=== PATIENT | female | born 1985 | race Caucasian/White ===

== ENCOUNTER 2016-10-28 12:14 | Emergency (ER) | payer MEDICAID ==
--- NOTE | 2016-10-28 12:25 | ER Document Report ---
ED Medical Screen (RME) - General Stated Complaint: CRAMPING Notes: Abnormal vaginal bleeding initiated last night painful cramps and full commences 2 weeks ago. I greeted and performed a rapid initial assessment of this patient. Comprehensive ED assessment and evaluation of the patient, analysis of test results and completion of the medical decision making process will be conducted by additional ED providers. TRAVEL OUTSIDE OF THE [place] IN LAST 30 DAYS: No - Related Data Allergies/Adverse Reactions: No Known Allergies Allergy (Verified 03/30/13 13:40) Past Medical History Pulmonary Medical History: Denies: Hx Tuberculosis Neurological Medical History: Reports: Hx Migraine, Hx Seizures - focal point ( left side). Denies: Hx Cerebrovascular Accident Renal/ Medical History: Denies: Hx End Stage Renal Disease, Hx Kidney Stones, Hx Peritoneal Dialysis Musculoskeltal Medical History: Denies Hx Multiple Sclerosis Psychiatric Medical History: Denies: Hx Dementia Past Surgical History: Reports: Hx Section, Hx Orthopedic Surgery - "tumors both hands", Hx Tubal Ligation. Denies: Hx Appendectomy, Hx Bowel Surgery, Hx Cholecystectomy, Hx Coronary Artery Bypass Graft, Hx Gastric Bypass Surgery, Hx Herniorrhaphy, Hx Hysterectomy, Hx Mastectomy, Hx Pacemaker, Hx Tonsillectomy - Immunizations Immunizations up to date: Yes Hx Diphtheria, Pertussis, Tetanus Vaccination: No Physical Exam - Vital signs Vitals: Temp Pulse Resp BP Pulse Ox 97.4 F 94 20 114/73 98 10/28/16 12:22 10/28/16 12:22 10/28/16 12:22 10/28/16 12:22 10/28/16 12:22 Course - Vital Signs Vital signs: Temp Pulse Resp BP Pulse Ox 97.4 F 94 20 114/73 98 10/28/16 12:22 10/28/16 12:22 10/28/16 12:22 10/28/16 12:22 10/28/16 12:22
[2016-10-28 12:50] LABS: ABSOLUTE EOSINOPHILS # (AUTO) 0.1 10^3/uL (0.0-0.6); ABSOLUTE LYMPHOCYTES (AUTO) 2.4 10^3/uL (0.5-4.7); ABSOLUTE MONOCYTES (AUTO) 0.8 10^3/uL (0.1-1.4); ABSOLUTE NEUT (AUTO) 7.6 10^3/uL (1.7-8.2); BASOPHILS % (AUTO) 0.2 % (0-2); EOSINOPHILS % (AUTO) 0.5 % (0-6); HEMOGLOBIN 14.3 g/dL (12.0-15.5); HGB HCT DIFFERENCE -1.1; LYMPHOCYTES % (AUTO) 21.8 % (13-45); MEAN CORPUSCULAR HEMOGLOBIN 31.1 pg (27.0-33.4); MEAN CORPUSCULAR HGB CONC 32.5 g/dL (32.0-36.0); MEAN CORPUSCULAR VOLUME 96 fl (80-97); MONOCYTES % (AUTO) 7.6 % (3-13); RED CELL DISTRIBUTION WIDTH 12.7 % (11.5-14.0); SEGMENTED NEUTROPHILS % (AUTO) 69.9 % (42-78); WHITE BLOOD COUNT 10.8 10^3/uL (4.0-10.5)
[2016-10-28 12:50] LABS: APPEARANCE,URINE CLEAR; BILIRUBIN,URINE NEGATIVE (NEGATIVE); GLUCOSE, URINE NEGATIVE (NEGATIVE); KETONES,URINE NEGATIVE (NEGATIVE); LEUKOCYTE ESTERASE,URINE NEGATIVE (NEGATIVE); NITRITE,URINE NEGATIVE (NEGATIVE); PROTEIN,URINE NEGATIVE (NEGATIVE); URINE SPECIFIC GRAVITY 1.005; UROBILINOGEN,URINE NEGATIVE mg/dL (<2.0)
[2016-10-28] MEDS ORDERED: PROMETHAZINE HCL 25 MG TABLET PO ONE (12:59)
[2016-10-28] MEDS ORDERED: KETOROLAC TROMETHAMINE 60 MG/2 ML SDV IM ONE (12:59)
[2016-10-28] MEDS ORDERED: OXYCODONE-ACETAMINOPHEN 5-325 MG TABLET PO ONE (12:59)
[2016-10-28 13:08] LABS: ALANINE AMINOTRANSFERASE 30 U/L (9-52); ALBUMIN 3.9 g/dL (3.5-5.0); ALKALINE PHOSPHATASE 61 U/L (38-126); ANION GAP 11 (5-19); ASPARTATE AMINO TRANSFERASE 19 U/L (14-36); BILIRUBIN,TOTAL 0.3 mg/dL (0.2-1.3); BLOOD UREA NITROGEN 14 mg/dL (7-20); CALCIUM 9.5 mg/dL (8.4-10.2); CARBON DIOXIDE 24 mmol/L (22-30); CHLORIDE 107 mmol/L (98-107); CREATININE RESULT 0.76 mg/dL (0.52-1.25); GLUCOSE 82 mg/dL (75-110); POTASSIUM 4.4 mmol/L (3.6-5.0); SODIUM 142.4 mmol/L (137-145)
--- NOTE | 2016-10-28 13:09 | ER Document Report ---
ED GI/ - General Chief Complaint: Vaginal Bleeding Stated Complaint: CRAMPING Notes: Patient is complaining of cramping, primarily in the right lower quadrant of the abdomen and right pelvic region. Says she started having vaginal bleeding last night. Her last menses was October 06. Has had a tubal ligation. Along with the bleeding last night, she started having cramping, primarily in the right lower quadrant region. Throughout the afternoon and evening yesterday, she had heavy bleeding, but no clots along with increasing cramping. This morning, her bleeding is alternating between heavy and spotting, but the cramping has increased in the right lower quadrant. No nausea, vomiting, or diarrhea. No UTI symptoms. No fevers. TRAVEL OUTSIDE OF THE [place] IN LAST 30 DAYS: No - Related Data Allergies/Adverse Reactions: No Known Allergies Allergy (Verified 10/28/16 12:25) Past Medical History - General Last Menstrual Period: 10/06/16 - Social History Smoking Status: Current Some Day Smoker Cigarette use (# per day): Yes Chew tobacco use (# tins/day): No Frequency of alcohol use: None Drug Abuse: None Family History: Reviewed & Not Pertinent, Other - lupus, RA, depression, asthma Patient has suicidal ideation: No Patient has homicidal ideation: No Neurological Medical History: Reports: Hx Migraine, Hx Seizures - focal point ( left side) Renal/ Medical History: Reports: Hx Ovarian Cysts - On her left side. Never had any surgery for cysts.. Denies: Hx Kidney Stones GI Medical History: Reports: None Psychiatric Medical History: Reports: Hx Anxiety, Hx Depression Past Surgical History: Reports: Hx Section, Hx Gynecologic Surgery - For adhesions, Hx Orthopedic Surgery - "tumors both hands", Hx Tubal Ligation - Immunizations Immunizations up to date: Yes Hx Diphtheria, Pertussis, Tetanus Vaccination: No Review of Systems - Review of Systems Notes: REVIEW OF SYSTEMS: CONSTITUTIONAL : Denies fever. EENT: Denies eye, ear, nose or mouth or throat pain or other symptoms. CARDIOVASCULAR: Denies chest pain. RESPIRATORY: Denies cough, chest congestion, or shortness of breath. GASTROINTESTINAL: See history of present illness. GENITOURINARY: Denies difficulty or painful urinating, urinary frequency, blood in urine. MUSCULOSKELETAL: Denies back or neck pain. Denies joint pain or swelling. SKIN: Denies rash or skin lesions. NEUROLOGICAL: Denies LOC or altered mental status. Denies headache. Denies sensory loss or motor deficits. PSYCHIATRIC: Is currently under treatment for anxiety and depression. ALL OTHER SYSTEMS REVIEWED AND NEGATIVE. Physical Exam - Vital signs Vitals: Temp Pulse Resp BP Pulse Ox 97.4 F 94 20 114/73 98 10/28/16 12:22 10/28/16 12:22 10/28/16 12:22 10/28/16 12:22 10/28/16 12:22 Interpretation: Normal - Notes Notes: PHYSICAL EXAMINATION: GENERAL: Well-appearing, in no acute distress. Appears comfortable sitting on the stretcher. Vital signs are all normal. Afebrile. HEAD: Atraumatic, normocephalic. NECK: Normal range of motion, supple. LUNGS: Breath sounds clear and equal bilaterally. HEART: Regular rate and rhythm without murmurs. ABDOMEN: Tender to palpate in the right lower quadrant but no specific guarding or rebound. BACK: No tenderness throughout entire back. EXTREMITIES: Normal range of motion without pain. PSYCH: Normal mood, normal affect. SKIN: Warm, dry, no rashes. Course - Re-evaluation Re-evalutation: 10/28/16 14:50 Ultrasound and all labs are normal except for a white count of 10,800. Patient says that the Toradol and other medicines I gave did not help her pain. I reexamined her abdomen and she remains tender in the right lower quadrant region. I'm going to order a CT scan to rule out appendicitis. 10/28/16 18:45 Advised the patient of our findings, or lack of findings today. Recommended she arrange prompt follow-up with a [employer] physician for further evaluation and care. She said that her primary care provider was doing the paperwork to get her referred. I'm going to prescribe symptomatically relief and advised to return if symptoms worsen or fever etc. - Vital Signs Vital signs: Temp Pulse Resp BP Pulse Ox 97.4 F 94 20 114/73 98 10/28/16 12:22 10/28/16 12:22 10/28/16 12:22 10/28/16 12:22 10/28/16 12:22 - Laboratory Result Diagrams: 10/28/16 12:30 10/28/16 12:30 Laboratory results interpreted by me: 10/28/16 10/28/16 12:30 12:35 WBC 10.8 H Urine Blood MODERATE H - Diagnostic Test Radiology reviewed: Image reviewed, Reports reviewed - Ultrasound of the pelvis was read as normal. CT scan of the abdomen and pelvis with oral and IV contrast were negative. Appendix seen and it was normal. Discharge - Discharge Clinical Impression: Right lower quadrant abdominal pain, Pelvic pain Condition: Stable Disposition: HOME, SELF-CARE Additional Instructions: ABDOMINAL PAIN: There are many causes of abdominal pain. Pain can mean a serious problem requiring surgery (such as appendicitis). It can also be an innocent problem that goes away on its own (such as a viral infection). Often, time must pass to determine the cause of pain. The physician does not feel that hospitalization is necessary, at present. Things may change within the next 24 hours. Call the doctor or come back for re- examination if any problems occur, such as: (1) Pain that becomes more severe, steady, or becomes concentrated in one specific area. Also, pain that is more severe with movement or coughing. (2) Vomiting that persists or becomes more frequent. (3) Blood in the vomitus, urine, or bowel movements. Blood in the stool may have a tarry or black appearance. (4) Shaking chills or fever greater than 100 degrees F. (5) The abdomen becomes more distended or swollen. (6) Bowel movements cease. (7) Failure to improve as expected. NORMAL EXAM AND WORKUP: At this time, your examination and workup show no significant abnormality. No significant abnormal physical findings are noted. All laboratory, EKG, and imaging (x-ray, CT scans, ultrasound) studies that were ordered show no significant abnormality. Although your examination and all studies that were ordered showed no significant abnormal finding, there are no examinations and no studies that are 100% accurate. There is always the possibility that some abnormality could exist and not be detected with physical examination or within the limits and capabilities of laboratory and other studies. You should return or follow up as you were instructed on your visit today for further evaluation if your symptoms do not resolve. TORADOL INJECTION: You have been given an injection of ketorolac tromethamine (Toradol). This is an excellent, safe drug for pain control. It also has potent antiinflammatory action. You should have significant pain relief within about one hour. Toradol is not addicting and is non-sedating. It does not interfere with driving or work. Call or return if you develop itching, hives, shortness of breath, or rash. PAIN MEDICATION INJECTION: You have received an injection of a pain medication. You should experience significant pain relief within 45 minutes. This drug is a narcotic - - it will impair your judgement, slow your reaction time and make you sleepy ( as well as relieve your pain). Narcotics also can cause nausea. You should not drive, work with machinery, or perform any task requiring mental alertness until all effects of the medication are gone -- six to eight hours. Do not take any alcohol, or sedatives, and do not take any other medication without checking with your physician. ANTINAUSEA MEDICATION: You have been given a medication to suppress nausea and vomiting. This type of medication can be given as a shot, pill, or suppository. It will usually last for many hours. Pills and shots usually last six to eight hours, suppositories last about 12 hours. For the typical illness, only one or two doses of the medication may be necessary. Mild lightheadedness may occur. This type of medicine can cause drowsiness. Do not drive or operate dangerous machinery while under its influence. Do not mix with alcohol. See your doctor at once if you have muscle spasms or tightness, or uncontrollable motions (particularly of the neck, mouth, or jaw). Persistent vomiting or severe lightheadedness should also be evaluated by the physician. ORAL NARCOTIC MEDICATION: You have been given a prescription for pain control. This medication is a narcotic. It's best taken with food, as nausea can result if taken on an empty stomach. Don't operate machinery or drive within six hours of taking this medication. Do not combine this medicine with alcohol, or with any medication which can cause sedation (such as cold tablets or sleeping pills) unless you get permission from the physician. Narcotics tend to cause constipation. If possible, drink plenty of fluids and eat a diet high in fiber and fruits. FOLLOW-UP CARE: If you have been referred to a physician for follow-up care, call the physician s office for an appointment as you were instructed or within the next two days. If you experience worsening or a significant change in your symptoms, notify the physician immediately or return to the Emergency Department at any time for re-evaluation. Follow-up with your primary care provider to get referred to a [employer] doctor to evaluate further. Return at any time if you start running a fever, have increasing pain, or develop new or worse symptoms of any sort. Prescriptions: Oxycodone HCl/Acetaminophen [Percocet 5-325 mg Tablet] 1 - 2 tab PO Q4H PRN #15 tablet PRN Reason: Promethazine HCl [Phenergan 25 mg Tablet] 1 - 2 tab PO Q6H PRN #15 tablet PRN Reason:
[2016-10-28] MEDS ORDERED: ONDANSETRON HCL INJ/PF 4 MG/2 ML SDV IV ONE (14:51)
[2016-10-28] MEDS ORDERED: MORPHINE SULFATE 10 MG/ML INJ IV ONE (14:52)
[2016-10-28 19:07] VITALS: BP 104/58
== END 2016-10-28 19:00 | disposition home or self-care (01) ==
LOC: ER 12:14
DX: R10.31 Right lower quadrant pain (principal); R10.2 Pelvic and perineal pain; N93.9 Abnormal uterine and vaginal bleeding, unspecified; F41.9 Anxiety disorder, unspecified; F32.9 Major depressive disorder, single episode, unspecified; F17.210 Nicotine dependence, cigarettes, uncomplicated; Z87.42 Personal history of other diseases of the female genital tract; Z98.51 Tubal ligation status
CPT/HCPCS: 99284; 96372; 96374; 96375; 36415; 85025; 81025; 80053; 81001; 76830; 93976; 74177; J1885; J2270; J3490; J2405

== ENCOUNTER 2017-02-03 08:23 | Emergency (ER) | payer MEDICAID ==
[2017-02-03 08:34] VITALS: BP 116/75
[2017-02-03] MEDS ORDERED: AMOXICILLIN TR/POT CLAVULANATE 500-125 MG TAB PO ONE (08:54)
[2017-02-03] MEDS ORDERED: ACETAMINOPHEN 325 MG TABLET PO ONE (08:54)
[2017-02-03] MEDS ORDERED: PSEUDOEPHEDRINE HCL 30 MG TABLET PO ONE (08:54)
[2017-02-03] MEDS ORDERED: GUAIFENESIN 600 MG TABLET.SA PO ONE (08:54)
--- NOTE | 2017-02-03 09:01 | ER Document Report ---
HPI - HPI Patient complains to provider of: sinus congestion Pain Level: 5 Context: She is a 31-year-old female presents emergency Department complaining of sinus congestion for the past 10 days. She's been taking [id number] medication such as Mucinex DM, Claritin, Benadryl, Flonase, Afrin, Sudafed without any improvement in her symptoms. She has not followed up with her primary care provider regarding this issue. She denies any previous history of seasonal allergies or sinus infections. She denies any previous ENT trauma or seizures. No known drug allergies [facility] - REPRODUCTIVE Reproductive: DENIES: : - DERM Skin Color: Normal Past Medical History - Social History Smoking Status: Current Every Day Smoker Frequency of alcohol use: Occasional Drug Abuse: None Family History: Reviewed & Not Pertinent, Other - lupus, RA, depression, asthma Pulmonary Medical History: Denies: Hx Tuberculosis Neurological Medical History: Reports: Hx Migraine, Hx Seizures - focal point ( left side). Denies: Hx Cerebrovascular Accident Renal/ Medical History: Reports: Hx Ovarian Cysts - On her left side. Never had any surgery for cysts.. Denies: Hx End Stage Renal Disease, Hx Kidney Stones, Hx Peritoneal Dialysis Musculoskeltal Medical History: Denies Hx Multiple Sclerosis Psychiatric Medical History: Reports: Hx Anxiety, Hx Depression Denies: Hx Dementia Past Surgical History: Reports: Hx Section, Hx Gynecologic Surgery - For adhesions, Hx Orthopedic Surgery - "tumors both hands", Hx Tubal Ligation. Denies: Hx Appendectomy, Hx Bowel Surgery, Hx Cholecystectomy, Hx Coronary Artery Bypass Graft, Hx Gastric Bypass Surgery, Hx Herniorrhaphy, Hx Hysterectomy, Hx Mastectomy, Hx Pacemaker, Hx Tonsillectomy - Immunizations Immunizations up to date: Yes Hx Diphtheria, Pertussis, Tetanus Vaccination: No Vertical Provider Document - CONSTITUTIONAL Agree With Documented VS: Yes Exam Limitations: No Limitations General Appearance: WD/WN, No Apparent Distress - INFECTION CONTROL TRAVEL OUTSIDE OF THE [place] IN LAST 30 DAYS: No - HEENT HEENT: Atraumatic, Normocephalic, PERRLA. negative: Pharyngeal Exudate, Pharyngeal Tenderness, Pharyngeal Erythema, Tympanic Membrane Red, Tympanic Membrane Bulging Notes: Bilateral maxillary sinus tenderness. Clear rhinorrhea. Uvula midline. Airway patent. No evidence of tonsillar enlargement, peritonsillar abscess, retropharyngeal abscess. - NECK Neck: Normal Inspection. negative: Lymphadenopathy-Left, Lymphadenopathy-Right - RESPIRATORY Respiratory: Breath Sounds Normal, No Respiratory Distress, Chest Non-Tender. negative: Rales, Rhonchi, Wheezing O2 Sat by Pulse Oximetry: 99 - CARDIOVASCULAR Cardiovascular: Regular Rate, Regular Rhythm, No Murmur Pulses: Normal: Radial - NEURO Level of Consciousness: Awake, Alert, Appropriate Motor/Sensory: No Motor Deficit, No Sensory Deficit - DERM Integumentary: Warm, Dry, No Rash Course - Re-evaluation Re-evalutation: 02/03/17 10:19 Patient is a 31 female presents with 10 days of sinus congestion, pain, mild fevers and rhinorrhea. Patient meets criteria for outpatient antibiotic management. We'll discharge her home on Augmentin a low-dose steroid pack, instruction to follow up with her primary care. - Vital Signs Vital signs: Temp Pulse Resp BP Pulse Ox 98.3 F 68 16 116/75 99 02/03/17 08:32 02/03/17 08:32 02/03/17 08:32 02/03/17 08:32 02/03/17 08:32 Discharge - Discharge Clinical Impression: Sinusitis Condition: Good Disposition: HOME, SELF-CARE Instructions: Sinusitis ([facility]) Additional Instructions: Please use a Netti pot available [id number] Medications to take at home in addition to the prescriptions received today include Claritin and Mucinex DM A follow-up with her primary care provider towards the end of this coming week Prescriptions: Amox Tr/Potassium Clavulanate [Augmentin 875-125 mg Tablet] 1 tab PO BID 7 Days Prednisone 5 mg PO ASDIR PRN #1 tab.ds.pk PRN Reason: Forms: Return to Work Referrals: SIMONE KENNEY MD [Primary Care Provider] - Follow up as needed
== END 2017-02-03 09:07 | disposition home or self-care (01) ==
LOC: ER 08:23
DX: J32.9 Chronic sinusitis, unspecified (principal); F17.200 Nicotine dependence, unspecified, uncomplicated; R09.81 Nasal congestion; R50.9 Fever, unspecified; J34.89 Other specified disorders of nose and nasal sinuses
CPT/HCPCS: 99283; J3490 ×3

== ENCOUNTER 2017-03-04 17:45 | Emergency (ER) | payer MEDICAID, OTHER ==
[2017-03-04 17:59] VITALS: BP 99/59
[2017-03-04] MEDS ORDERED: HYDROXYZINE PAMOATE 50 MG CAPSULE PO ONE (18:27)
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
--- NOTE | 2017-03-04 21:15 | EKG REPORT ---
SEVERITY:- NORMAL ECG - SINUS RHYTHM : Confirmed by: Amando Fraga 04-Mar-2017 21:14:53
== END 2017-03-04 19:30 | disposition left against medical advice (07) ==
LOC: ER 17:45
DX: F41.9 Anxiety disorder, unspecified (principal); R07.89 Other chest pain; R06.02 Shortness of breath; R20.0 Anesthesia of skin; R20.2 Paresthesia of skin; Z53.20 Procedure and treatment not carried out because of patient's decision for unspecified reasons
CPT/HCPCS: 93005; 99281; 93010; J3490

== ENCOUNTER 2017-05-17 10:42 | Emergency (ER) | payer MEDICAID, OTHER ==
--- NOTE | 2017-05-17 12:11 | ER Document Report ---
ED Extremity Problem, Lower - General Chief Complaint: Leg Pain Stated Complaint: CALF PAIN/DIZZINESS Time Seen by Provider: 05/17/17 11:28 Mode of Arrival: Ambulatory Information source: Patient Notes: 31-year-old female presents to ED for complaint of right calf pain and right leg pain with bruises to the back of her calf. She states she did not fall did not have any injury she woke up with these bruises and pain. She states she does smoke between half to a pack per day is not on control and has not had any long trips. TRAVEL OUTSIDE OF THE [place] IN LAST 30 DAYS: No - HPI Patient complains to provider of: Pain, Swelling. No: Injury Location: Leg Occurred: This morning Quality of pain: Sharp, Throbbing Severity: Moderate Pain Level: 4 Recent injury: No Associated symptoms: Painful ambulation Exacerbated by: Walking Relieved by: Nothing - Related Data Allergies/Adverse Reactions: bupropion [From Wellbutrin] Allergy (Verified 05/17/17 10:46) Past Medical History - General Information source: Patient - Social History Smoking Status: Current Every Day Smoker Cigarette use (# per day): Yes - 1/2-1 pack per days Chew tobacco use (# tins/day): No Smoking Education Provided: Yes - Less than 2 minutes Frequency of alcohol use: Rare Drug Abuse: Marijuana - She states she has a prescription for medical marijuana Occupation: No work Lives with: Spouse/Significant other Family History: Other - lupus, RA, depression, asthma Patient has suicidal ideation: No Patient has homicidal ideation: No - Past Medical History Cardiac Medical History: Reports: None Pulmonary Medical History: Reports: None EENT Medical History: Reports: None Neurological Medical History: Reports: Hx Migraine, Hx Seizures - focal point ( left side) Endocrine Medical History: Reports: None Renal/ Medical History: Reports: Hx Ovarian Cysts - On her left side. Never had any surgery for cysts. Malignancy Medical History: Reports: None GI Medical History: Reports: Hx Colonoscopy, Hx Endoscopy Skin Medical History: Reports None Psychiatric Medical History: Reports: Hx Anxiety, Hx Bipolar Disorder, Hx Depression Traumatic Medical History: Reports: None Infectious Medical History: Reports: None Past Surgical History: Reports: Hx Section, Hx Gynecologic Surgery - For adhesions, Hx Orthopedic Surgery - "tumors both hands", Hx Tubal Ligation - Immunizations Immunizations up to date: Yes Hx Diphtheria, Pertussis, Tetanus Vaccination: No Review of Systems - Review of Systems Constitutional: No symptoms reported EENT: No symptoms reported Cardiovascular: Dizziness Respiratory: No symptoms reported Gastrointestinal: No symptoms reported Genitourinary: No symptoms reported Female Genitourinary: No symptoms reported Musculoskeletal: Other - Right calf pain Skin: Other - bruising right calf Hematologic/Lymphatic: No symptoms reported Neurological/Psychological: No symptoms reported -: Yes All other systems reviewed and negative Physical Exam - Vital signs Vitals: Temp Pulse Resp BP Pulse Ox 97.7 F 63 18 105/55 L 99 05/17/17 10:47 05/17/17 10:47 05/17/17 10:47 05/17/17 10:47 05/17/17 10:47 Interpretation: Normal - General General appearance: Appears well, Alert - HEENT Head: Normocephalic, Atraumatic Eyes: Normal Pupils: PERRL - Respiratory Respiratory status: No respiratory distress Chest status: Nontender Breath sounds: Normal Chest palpation: Normal - Cardiovascular Rhythm: Regular Heart sounds: Normal auscultation Murmur: No - Abdominal Inspection: Normal Distension: No distension Bowel sounds: Normal Tenderness: Nontender Organomegaly: No organomegaly - Back Back: Normal, Nontender - Extremities General upper extremity: Normal inspection, Nontender, Normal color, Normal ROM , Normal temperature General lower extremity: Normal ROM, Normal temperature, Normal weight bearing. No: Keith's sign Calf: Tender, Ecchymosis. No: Abrasion, Deformity, Instability, Laceration, Unable to bear weight - Neurological Neuro grossly intact: Yes Cognition: Normal Orientation: AAOx4 Shirley Coma Scale Eye Opening: Spontaneous Shirley Coma Scale Verbal: Oriented Shirley Coma Scale Motor: Obeys Commands Nicanor Coma Scale Total: 15 Speech: Normal Motor strength normal: LUE, RUE, LLE, RLE Sensory: Normal - Psychological Associated symptoms: Normal affect, Normal mood - Skin Skin Temperature: Warm Skin Moisture: Dry Skin Color: Normal Course - Re-evaluation Re-evalutation: 05/17/17 12:42 Discussed Accu-Chek urine and Doppler with patient. Will discharge patient home to follow-up with her primary doctor. We will give patient a prescription for ibuprofen. - Vital Signs Vital signs: Temp Pulse Resp BP Pulse Ox 97.4 F 71 16 106/52 L 100 05/17/17 12:56 08/18/17 12:56 05/17/17 12:56 05/17/17 12:56 05/17/17 12:56 - Diagnostic Test Radiology reviewed: Image reviewed, Reports reviewed Discharge - Discharge Clinical Impression: Right calf pain, Calf bruising right Condition: Stable Disposition: HOME, SELF-CARE Additional Instructions: Leg Pain, Nonspecific We did not find an obvious cause for your leg pain. There's no sign of blood clot, infection, or other serious disease. Possible causes of vague leg pain include muscle or joint inflammation, disc disease in the lower back, pressure on the nerves in the back, or reduced blood flow through the arteries of the leg. Rest the leg. Pain can be eased with an antiinflammatory pain medicine such as ibuprofen. If the pain involves a small area, a heating pad might help. Call the doctor or return if the leg becomes swollen, weak, discolored, or increasingly painful, or if you develop any other significant change in your health. ICE & ELEVATION: Apply ice packs frequently against the painful area. Many different schedules are recommended, such as "20 minutes on, 20 minutes off" or "one hour ice, two hours rest." If you need to work, you may need to go longer between ice treatments. You should plan to have the area ice packed AT LEAST one- fourth of the time. The ice should be applied over the wrap, tape, or splint, or over a layer of cloth -- not directly against the skin. Some ice bags have a built-in cloth and can be put directly on the skin. Your injured part should be elevated as much as possible over the next 48 hours. Try to keep the injury above the level of the heart. Avoid use of the injured area. Elevation and rest will decrease the swelling. USE OF [id number] IBUPROFEN: Ibuprofen (Advil, Nuprin, Medipren, Motrin IB) is a medication for fever and pain control. In addition, it has anti- inflammatory effects which may be beneficial, especially in the treatment of injuries. It's best to take ibuprofen with food. Persons with ulcer disease or allergy to aspirin should notify their physician of this before taking ibuprofen. Ibuprofen can be given every four to six hours, for a total of four doses daily. Age Pain or fever dose Antiinflammatory dose 6-8 yr 200 mg (1 tab) 200 mg (1 tab) 9-11 yr 200 mg (1 tab) 200-400 mg (1-2 tab) 11-14 yr 200-400 mg (1-2 tab) 400 mg (2 tab) 15-adult 400 mg (2 tab) 600 mg (3 tab) FOLLOW-UP CARE: If you have been referred to a physician for follow-up care, call the physician s office for an appointment as you were instructed or within the next two days. If you experience worsening or a significant change in your symptoms, notify the physician immediately or return to the Emergency Department at any time for re-evaluation. Prescriptions: Ibuprofen 600 mg PO Q6HP PRN #20 tablet PRN Reason: Referrals: CARL CRAVEN PA-C [Primary Care Provider] - Follow up as needed
[2017-05-17 12:20] LABS: APPEARANCE,URINE CLEAR; BILIRUBIN,URINE NEGATIVE (NEGATIVE); GLUCOSE, URINE NEGATIVE (NEGATIVE); KETONES,URINE NEGATIVE (NEGATIVE); LEUKOCYTE ESTERASE,URINE NEGATIVE (NEGATIVE); NITRITE,URINE NEGATIVE (NEGATIVE); PROTEIN,URINE NEGATIVE (NEGATIVE); URINE SPECIFIC GRAVITY 1.021; UROBILINOGEN,URINE NEGATIVE mg/dL (<2.0)
--- NOTE | 2017-05-17 12:51 | RADIOLOGY REPORT (SQ) ---
EXAM DESCRIPTION: VENOUS UNILATERAL LOWER COMPLETED DATE/TIME: 05/17/2017 12:41 pm REASON FOR STUDY: pain in right calf COMPARISON: None. TECHNIQUE: Dynamic and static washburn scale and color images acquired of the right leg venous system. S elected spectral images acquired with additional compression and augmentation maneuvers. The contrala teral common femoral vein and saphenofemoral junction were also imaged. Images stored on PACS. LIMITATIONS: None. FINDINGS: RIGHT COMMON FEMORAL: Normal phasicity, compression and augmentation. No visualized echogenic material on g ray scale. No defects on color images. FEMORAL: Normal compression and augmentation. No visualized echogenic material on washburn scale. No defe cts on color images. POPLITEAL: Normal compression, augmentation. No visualized echogenic material on washburn scale. No defec ts on color images. CALF VESSELS: Normal compression, augmentation. No visualized echogenic material on washburn scale. No de fects on color images. GSV and SSV: Normal compression, augmentation. No visualized echogenic material on washburn scale. No def ects on color images. ANY DEEP VENOUS INSUFFICIENCY: Not evaluated. ANY EVIDENCE OF POPLITEAL CYST: No. OTHER: No other significant finding. LEFT COMMON FEMORAL VEIN AND SAPHENOFEMORAL JUNCTION: Normal phasicity, compression and augmentation. No visualized echogenic material on washburn scale. No de fects on color images. IMPRESSION: NO EVIDENCE OF DVT OR SVT IN THE RIGHT LEG. TECHNICAL DOCUMENTATION: JOB ID: [id number] [employer]- All Rights Reserved
[2017-05-17 13:21] VITALS: BP 106/52
== END 2017-05-17 12:59 | disposition home or self-care (01) ==
LOC: ER 10:42
DX: S80.11XA Contusion of right lower leg, initial encounter (principal); M79.604 Pain in right leg; R42 Dizziness and giddiness; F17.210 Nicotine dependence, cigarettes, uncomplicated; X58.XXXA Exposure to other specified factors, initial encounter
CPT/HCPCS: 81001; 81025; 82962; 93971; 99284

== ENCOUNTER 2017-08-18 13:54 | Emergency (ER) | payer MEDICAID ==
[2017-08-18 14:05] VITALS: BP 104/52
--- NOTE | 2017-08-18 15:35 | RADIOLOGY REPORT (SQ) ---
EXAM DESCRIPTION: HIP LEFT AP/LATERAL COMPLETED DATE/TIME: 08/18/2017 3:28 pm REASON FOR STUDY: fall COMPARISON: None. NUMBER OF VIEWS: Two views. TECHNIQUE: AP pelvis and additional frog-leg view of the left hip. LIMITATIONS: None. FINDINGS: MINERALIZATION: Normal. LEFT HIP: No fracture or dislocation. No worrisome bone lesions. RIGHT HIP: No fracture or dislocation. No worrisome bone lesions. PUBIS AND ISCHIUM: No fracture. PELVIS: No fracture. SACRUM: No fracture or dislocation. No worrisome bone lesions. LOWER LUMBAR SPINE: No fracture or dislocation. No worrisome bone lesions. No significant disc disea se. SOFT TISSUES: No findings. OTHER: No other significant finding. IMPRESSION: NEGATIVE STUDY OF THE LEFT HIP AND PELVIS. NO RADIOGRAPHIC EVIDENCE OF ACUTE INJURY. TECHNICAL DOCUMENTATION: JOB ID: [id number] [employer]- All Rights Reserved
--- NOTE | 2017-08-18 15:35 | RADIOLOGY REPORT (SQ) ---
EXAM DESCRIPTION: KNEE LEFT 3 VIEWS COMPLETED DATE/TIME: 08/18/2017 3:28 pm REASON FOR STUDY: fall COMPARISON: None. NUMBER OF VIEWS: Three views. TECHNIQUE: AP, lateral, and sunrise patella radiographic images acquired of the left knee. LIMITATIONS: None. FINDINGS: MINERALIZATION: Normal. BONES: No acute fracture or dislocation. No worrisome bone lesions. JOINT: No effusion. SOFT TISSUES: No soft tissue swelling. No radio-opaque foreign body. OTHER: No other significant finding. IMPRESSION: NEGATIVE STUDY OF THE LEFT KNEE. NO RADIOGRAPHIC EVIDENCE OF ACUTE INJURY. TECHNICAL DOCUMENTATION: JOB ID: [id number] [employer]- All Rights Reserved
[2017-08-18] MEDS ORDERED: HYDROCODONE/ACETAMINOPHEN 7.5-325 MG TABLET PO ONE (15:46)
--- NOTE | 2017-08-18 15:56 | ER Document Report ---
ED Extremity Problem, Lower - General Chief Complaint: Knee Injury Stated Complaint: LEFT KNEE PAIN Time Seen by Provider: 08/18/17 15:00 Mode of Arrival: Ambulatory Information source: Patient, Relative Notes: Patient is a 31-year-old female comes emergency room complaining of left knee pain. She also complains of left hip pain. Patient states that she was walking across a wooden floor she slipped and landed on her left knee jamming her left hip. She has a black and blue spot on the inferior portion of the left knee that is painful and hurts when she walks. The hip also hurts when she walks. Patient denies any other injuries from this fall and is afraid she may have broke something on her knee. TRAVEL OUTSIDE OF THE [place] IN LAST 30 DAYS: No - HPI Patient complains to provider of: Injury, Pain Location: Hip, Knee Occurred: Last week Where: Home Onset/Duration: Sudden, Persistent, Waxing and waning Quality of pain: Achy, Sharp, Throbbing Severity: Moderate Pain Level: 3 Context: Fell - from standing, Wearing shoes Recent injury: Yes Associated symptoms: Other - pain, swelling Exacerbated by: Movement, Walking, Other - palpation Relieved by: Elevation, Rest - Related Data Allergies/Adverse Reactions: bupropion [From Wellbutrin] Allergy (Verified 08/18/17 14:02) Past Medical History - General Information source: Patient, Relative - Social History Smoking Status: Unknown if Ever Smoked Chew tobacco use (# tins/day): No Smoking Education Provided: No Frequency of alcohol use: Rare Drug Abuse: None Lives with: Family Family History: Reviewed & Not Pertinent, Other - lupus, RA, depression, asthma Patient has suicidal ideation: No Patient has homicidal ideation: No Neurological Medical History: Reports: Hx Migraine, Hx Seizures - focal point ( left side) Renal/ Medical History: Reports: Hx Ovarian Cysts - On her left side. Never had any surgery for cysts.. Denies: Hx Peritoneal Dialysis GI Medical History: Reports: Hx Colonoscopy, Hx Endoscopy Psychiatric Medical History: Reports: Hx Anxiety, Hx Bipolar Disorder, Hx Depression Past Surgical History: Reports: Hx Section, Hx Gynecologic Surgery - For adhesions, Hx Orthopedic Surgery - "tumors both hands", Hx Tubal Ligation - Immunizations Immunizations up to date: Yes Hx Diphtheria, Pertussis, Tetanus Vaccination: No Review of Systems - Review of Systems Constitutional: No symptoms reported EENT: No symptoms reported Cardiovascular: No symptoms reported Respiratory: No symptoms reported Gastrointestinal: No symptoms reported Genitourinary: No symptoms reported Female Genitourinary: No symptoms reported Musculoskeletal: Joint pain, Joint swelling, Muscle pain Skin: Change in color, Other - ecchymosis around left knee. Hematologic/Lymphatic: No symptoms reported Neurological/Psychological: No symptoms reported -: Yes All other systems reviewed and negative Physical Exam - Vital signs Vitals: Temp Pulse Resp BP Pulse Ox 97.8 F 78 19 104/52 L 100 08/18/17 14:03 08/18/17 14:03 08/18/17 14:03 08/18/17 14:03 08/18/17 14:03 Interpretation: Normal - General General appearance: Other - Obvious discomfort In distress: None - Respiratory Respiratory status: No respiratory distress Breath sounds: Normal. No: Decreased air movement, Nonproductive cough, Productive cough, Rales, Rhonchi, Stridor, Wheezing, Other - Cardiovascular Rhythm: Regular Heart sounds: Normal auscultation Murmur: No - Back Back: Normal, Nontender - Extremities General upper extremity: Normal inspection General lower extremity: Tender, Edema. No: Normal inspection, Nontender, Normal color, Normal ROM, Normal strength, Normal temperature, Normal weight bearing, Keith's sign, Other Hip: Tender, Pain with ROM, Other - Examination of the left hip shows no swelling but has some discomfort with passive ROM. No crepitus felt on manipulation. Good femeral pulse bilat. no deformity and no significant discomfoprt to palpation in the gron area. There is no shortening of the left leg and no abnormal inward or outward deviation of the foot on the left no rotation of hte left lower extremity Knee: Tender, Ecchymosis, Joint effusion, Laxity with varus stress, Pain with ROM, Patellar tendon intact Calf: Normal, Nontender Ankle: Normal, Nontender Foot: Normal, Nontender - Neurological Neuro grossly intact: Yes Cognition: Normal Orientation: AAOx4 Nicanor Coma Scale Eye Opening: Spontaneous Nicanor Coma Scale Verbal: Oriented Nicanor Coma Scale Motor: Obeys Commands Desmet Coma Scale Total: 15 Speech: Normal - Skin Skin Moisture: Dry Skin Color: Ecchymosis, Other - As describedd . There is mild discoloration inferior to patella. Course - Vital Signs Vital signs: Temp Pulse Resp BP Pulse Ox 97.8 F 78 19 104/52 L 100 08/18/17 14:03 08/18/17 14:03 08/18/17 14:03 08/18/17 14:03 08/18/17 14:03 Procedures - Immobilization Left Knee Time completed: 15:52 Pre-Proc Neuro Vasc Exam: Normal Immobilizer type: Knee immobilizer Performed by: PCT Post-Proc Neuro Vasc Exam: Normal Alignment checked and good: Yes Notes: 08/18/17 15:52 Patient was placed in a left knee immobilizer by the patient respiratory care specialist was checked by myself the physician railways assistant found to be in good position with good cap refill in the nailbeds of the left foot after application. Tolerated this application without problem. Discharge - Discharge Clinical Impression: Other sprain of left hip, Internal derangement of left knee Contusion of left knee Qualifiers: Encounter type: initial encounter Qualified Code(s): S80.02XA - Contusion of left knee, initial encounter Condition: Good Disposition: HOME, SELF-CARE Instructions: Use of Crutches ([facility]), Ice & Elevation ([facility]), Suspected Internal Knee Injury ([facility]), Knee Immobilizing Splint ([facility]), Sprained Knee ([facility]) Additional Instructions: Highly recommend using the knee immobilizer for the next 3-4 days per much at all times. Ice to that area 3 times a day. I am giving a little bit of pain medication for the discomfort you may not need crutches after 2448 hrs. because the immobilizer will give you some stability. However if you need to come continue with the crutches for the entire length of time. I have given you the name of the orthopedist is cardiac catheterization technologist for us this weekend if the pain continues she can contact his office to see if we can accommodate you. Other than that you may follow-up with her primary care to see if there is a orthopedic doctor they can refer you to. Should you have any other concerns return to ER for a recheck. Also ice to hip 3 times a day. Also try ibuprofen 800 mg 3 times a day with food as well. Prescriptions: Hydrocodone/Acetaminophen [Delta 7.5-325 Tablet] 1 each PO Q6 #12 tablet Forms: Elevated Blood Pressure Referrals: AMINA CASTLE DO [Primary Care Provider] - Follow up as needed
== END 2017-08-18 16:18 | disposition home or self-care (01) ==
LOC: ER 13:54
DX: S80.02XA Contusion of left knee, initial encounter (principal); S73.102A Unspecified sprain of left hip, initial encounter; M23.8X2 Other internal derangements of left knee; M25.562 Pain in left knee; M25.552 Pain in left hip; W01.0XXA Fall on same level from slipping, tripping and stumbling without subsequent striking against object, initial encounter
CPT/HCPCS: 99283; 73502; 73562; L1830

== ENCOUNTER 2018-08-05 12:14 | Emergency (ER) | payer MEDICAID ==
--- NOTE | 2018-08-05 13:26 | ER Document Report ---
HPI - HPI Patient complains to provider of: chest congestion Onset/Duration: Gradual Pain Level: 5 Context: 32 yo female c/o chest congestion, cough, stuffy nose, bodyaches. No fever. no shortness of breath or chest pain. Associated Symptoms: None Exacerbated by: Denies Relieved by: Denies - ROS ROS below otherwise negative: Yes Systems Reviewed and Negative: Yes All other systems reviewed and negative - REPRODUCTIVE Reproductive: DENIES: : Past Medical History - General Information source: Patient - Social History Smoking Status: Unknown if Ever Smoked Lives with: Family Family History: Reviewed & Not Pertinent, Other - lupus, RA, depression, asthma Neurological Medical History: Reports: Hx Migraine, Hx Seizures - focal point ( left side) Renal/ Medical History: Reports: Hx Ovarian Cysts - On her left side. Never had any surgery for cysts.. Denies: Hx Peritoneal Dialysis GI Medical History: Reports: Hx Colonoscopy, Hx Endoscopy Psychiatric Medical History: Reports: Hx Anxiety, Hx Bipolar Disorder, Hx Depression Past Surgical History: Reports: Hx Section, Hx Gynecologic Surgery - For adhesions, Hx Orthopedic Surgery - "tumors both hands", Hx Tubal Ligation - Immunizations Immunizations up to date: Yes Hx Diphtheria, Pertussis, Tetanus Vaccination: No Vertical Provider Document - CONSTITUTIONAL Agree With Documented VS: Yes Exam Limitations: No Limitations General Appearance: No Apparent Distress - INFECTION CONTROL TRAVEL OUTSIDE OF THE [place] IN LAST 30 DAYS: No - HEENT HEENT: Pharyngeal Erythema - mild. negative: Tympanic Membrane Red Notes: stuffy nose - NECK Neck: Supple. negative: Lymphadenopathy-Left, Lymphadenopathy-Right - RESPIRATORY Respiratory: Breath Sounds Normal, No Respiratory Distress - CARDIOVASCULAR Cardiovascular: Regular Rate, Regular Rhythm - NEURO Level of Consciousness: Alert Course - Re-evaluation Re-evalutation: 08/05/18 15:33 Lungs are clear at this time. She feels achy from the breathing treatment she wants to stop coughing so I will order Tessalon Perles. - Vital Signs Vital signs: Temp Pulse Resp BP Pulse Ox 98.2 F 103 H 18 102/70 98 08/05/18 12:18 08/05/18 12:18 08/05/18 12:18 08/05/18 12:18 08/05/18 12:18 Discharge - Discharge Clinical Impression: Bronchitis Condition: Good Disposition: HOME, SELF-CARE Instructions: Bronchitis With Bronchospasm (Wheezing) ([facility]), Inhaled Bronchodilators ([facility]), Tessalon Perles ([facility]) Additional Instructions: Plenty of fluids Return to the emergency room if symptoms worsen Tessalon Perles 1 4 times a day as needed to suppress the cough Prednisone for 4 more days Copy of negative imaging report given to you Prescriptions: Albuterol Sulfate [Proair HFA Inhalation Aerosol 8.5 gm MDI] 2 puff IH Q3HP PRN #1 [id number] PRN Reason: Benzonatate [Tessalon Perles 100 mg Capsule] 100 mg PO QIDP PRN #40 capsule PRN Reason: Prednisone [Deltasone 20 mg Tablet] 40 mg PO DAILY #8 tablet Referrals: AMINA CASTLE DO [Primary Care Provider] - Follow up tomorrow
[2018-08-05] MEDS ORDERED: ALBUTEROL SULFATE 0.083% NEB 2.5 MG/3 ML AMPUL NEB ONE (13:58)
[2018-08-05] MEDS ORDERED: IPRATROPIUM/ALBUTEROL 0.5-2.5 MG/3 ML AMPUL NEB ONE (13:58)
[2018-08-05] MEDS ORDERED: PREDNISONE 20 MG TABLET PO ONE (13:58)
[2018-08-05] MEDS ORDERED: ACETAMINOPHEN 325 MG TABLET PO ONE (14:00)
[2018-08-05] MEDS ORDERED: IBUPROFEN 600 MG TABLET PO ONE (14:00)
[2018-08-05 14:51] LABS: A TYPE INFLUENZA AG NEGATIVE (NEGATIVE); B INFLUENZA AG NEGATIVE (NEGATIVE)
[2018-08-05] MEDS ORDERED: BENZONATATE 100 MG CAPSULE PO ONE (15:33)
--- NOTE | 2018-08-05 15:35 | RADIOLOGY REPORT (SQ) ---
EXAM DESCRIPTION: CHEST 2 VIEWS COMPLETED DATE/TIME: 08/05/2018 3:26 pm REASON FOR STUDY: cough, chest pain COMPARISON: 06/20/2016 EXAM PARAMETERS: NUMBER OF VIEWS: two views TECHNIQUE: Digital Frontal and Lateral radiographic views of the chest acquired. RADIATION DOSE: NA LIMITATIONS: none FINDINGS: LUNGS AND PLEURA: No opacities, masses or pneumothorax. No pleural effusion. MEDIASTINUM AND HILAR STRUCTURES: No masses or contour abnormalities. HEART AND VASCULAR STRUCTURES: Heart normal size. No evidence for failure. BONES: No acute findings. HARDWARE: None in the chest. OTHER: No other significant finding. IMPRESSION: NO ACUTE RADIOGRAPHIC FINDING IN THE CHEST. TECHNICAL DOCUMENTATION: JOB ID: [id number] [employer]- All Rights Reserved Reading location - IP/workstation name: [email or web address]
[2018-08-05 15:41] VITALS: BP 122/68
== END 2018-08-05 15:45 | disposition home or self-care (01) ==
LOC: ER 12:14
DX: J40 Bronchitis, not specified as acute or chronic (principal); R09.89 Other specified symptoms and signs involving the circulatory and respiratory systems; R05 Cough; M79.10 Myalgia, unspecified site
CPT/HCPCS: 94640 ×2; 99284; 87804; 71046; J3490 ×3; J7512; J7620

== ENCOUNTER → 2019-10-13 | Outpatient (CLI) | payer MEDICAID ==
[2019-10-13 16:59] LABS: ABSOLUTE BASOPHILS # (AUTO) 0.1 10^3/uL (0.0-0.2); ABSOLUTE EOSINOPHILS # (AUTO) 0.5 10^3/uL (0.0-0.6); ABSOLUTE MONOCYTES (AUTO) 0.9 10^3/uL (0.1-1.4); ABSOLUTE NEUT (AUTO) 8.6 10^3/uL (1.7-8.2); BASOPHILS % (AUTO) 0.5 % (0-2); EOSINOPHILS % (AUTO) 3.7 % (0-6); HEMATOCRIT 41.6 % (36.0-47.0); HEMOGLOBIN 14.3 g/dL (12.0-15.5); MEAN CORPUSCULAR HEMOGLOBIN 33.1 pg (27.0-33.4); MEAN CORPUSCULAR HGB CONC 34.4 g/dL (32.0-36.0); MEAN CORPUSCULAR VOLUME 96 fl (80-97); MONOCYTES % (AUTO) 6.6 % (3-13); PLATELET COUNT 313 10^3/uL (150-450); RED BLOOD COUNT 4.32 10^6/uL (3.72-5.28); RED CELL DISTRIBUTION WIDTH 13.3 % (11.5-14.0); SEGMENTED NEUTROPHILS % (AUTO) 66.2 % (42-78); TOTAL CELLS COUNTED % (AUTO) 100 %
--- NOTE | 2019-10-13 17:04 | RADIOLOGY REPORT (SQ) ---
EXAM DESCRIPTION: CHEST PA/LATERAL COMPLETED DATE/TIME: 10/13/2019 4:54 pm REASON FOR STUDY: FEVER, PRODUCTIVE COUGH; SHARP CHEST PAIN COMPARISON: 08/05/2018 EXAM PARAMETERS: NUMBER OF VIEWS: two views TECHNIQUE: Digital Frontal and Lateral radiographic views of the chest acquired. RADIATION DOSE: NA LIMITATIONS: none FINDINGS: LUNGS AND PLEURA: Stable right infrahilar scarring or atelectasis. No acute pulmonary co nsolidation. No pneumothorax or pleural effusion. MEDIASTINUM AND HILAR STRUCTURES: No masses or contour abnormalities. HEART AND VASCULAR STRUCTURES: Heart normal size. No evidence for failure. BONES: No acute findings. HARDWARE: None in the chest. OTHER: No other significant finding. IMPRESSION: 1. No significant interval changes since the prior study dated 08/05/2018. No acute fin dings. TECHNICAL DOCUMENTATION: JOB ID: [id number] [employer]- All Rights Reserved Reading location - IP/workstation name: [email or web address]
== END ==
LOC: OD 16:06
PROVIDERS: ATTEND Pediatrics
DX: R50.9 Fever, unspecified (principal)
CPT/HCPCS: 36415; 71046; 85025; 86140